=== PATIENT | male | born 1960 | race Caucasian/White ===

== ENCOUNTER 2017-04-05 07:30 | Emergency (ER) | payer BC ==
[~2017-04-05] VITALS: Ht 188 cm; Wt 72.6 kg
--- NOTE | 2017-04-05 08:10 | RAD ---
Indication: Left hand numbness. Axial imaging through the brain was performed without contrast. No prior studies are available for comparison. Ventricles and sulci are within normal limits. No sulcal effacement, midline shift or hemorrhage is detected. Cisterns are patent. The visualized paranasal sinuses are clear. Impression: No acute intracranial process is detected. PQRS Compliance Statement: One or more of the following individualized dose reduction techniques were utilized for this examination: 1. Automated exposure control 2. Adjustment of the mA and/or kV according to patient size 3. Use of iterative reconstruction technique
[2017-04-05] MEDS ORDERED: METH4TAB2 PO (08:38)
--- NOTE | 2017-04-05 08:38 | PHYS DOC ---
Past History Past Medical History: No Pertinent History Past Surgical History: Other Smoking: Cigarettes Alcohol Use: Occasionally Additional Alcohol Information: 12 beers/week Drug Use: None Adult General Chief Complaint Chief Complaint: HAND PROBLEM HPI HPI 57-year-old right-handed male patient state he woke up at 6 AM and had left hand numbness from wrist to fingers and unable to extend his hand. Patient states he did go to work and his boss recommended to come to emergency room. Patient states he usually puts his hand under his head during sleep but never had this problem before. Patient denies other focal neuro deficit, nausea, vomiting, headache, blurred vision, chest pain, shortness of breath. Patient states he smokes cigarettes and drinks alcohol daily. Review of Systems Review of Systems Constitutional: Denies fever or chills [] Eyes: Denies change in visual acuity, redness, or eye pain [] HENT: Denies nasal congestion or sore throat [] Respiratory: Denies cough or shortness of breath [] Cardiovascular: No additional information not addressed in HPI [] GI: Denies abdominal pain, nausea, vomiting, bloody stools or diarrhea [] : Denies dysuria or hematuria [] Musculoskeletal: Denies back pain or joint pain [] Integument: Denies rash or skin lesions [] Neurologic: Denies headache, focal weakness, reports numbness of hand Endocrine: Denies polyuria or polydipsia [] All other systems were reviewed and found to be within normal limits, except as documented in this note. Allergies Allergies Allergies Coded Allergies Type Severity Reaction Last Updated Verified No Known Drug Allergies 04/05/17 No Physical Exam Physical Exam Constitutional: Well developed, well nourished, mild distress, non-toxic appearance. [] HENT: Normocephalic, atraumatic, bilateral external ears normal, oropharynx moist, no oral exudates, nose normal. [] Eyes: PERRLA, EOMI, conjunctiva normal, no discharge. [] Neck: Normal range of motion, no tenderness, supple, no stridor. [] Cardiovascular:Heart rate regular rhythm, no murmur [] Lungs & Thorax: Bilateral breath sounds clear to auscultation [] Abdomen: Bowel sounds normal, soft, no tenderness, no masses, no pulsatile masses. [] Skin: Warm, dry, no erythema, no rash. [] Back: No tenderness, no CVA tenderness. [] Extremities: No tenderness, no cyanosis, no clubbing, no edema. [] Neurologic: Alert and oriented X 3, left hand without deformity, partial wrist drop with decrease of sensation of hand Psychologic: Affect normal, judgement normal, mood normal. [] Current Patient Data Vital Signs Vital Signs Date Time Temp Pulse Resp B/P (MAP) Pulse Ox O2 Delivery O2 Flow Rate FiO2 04/05/17 07:30 97.9 104 18 98 Room Air EKG EKG [] Radiology/Procedures Radiology/Procedures CT head was unremarkable] Course & Med Decision Making Course & Med Decision Making Pertinent Imaging studies reviewed. (See chart for details) Evaluation of patient in ER showed 57-year-old male patient with complaining of left hand numbness and wristdrop since woke up this morning. Patient was not a candidate for activation of code stroke because of unknown time of starting his symptom. Patient had focal weakness and numbness of radial nerve. CT head was unremarkable. Patient instructed to follow up with the neurology and Velcro wrist splint was applied by SENIOR DATABASE ADMINISTRATOR. Patient also had elevation of blood pressure of 176/96 without history of hypertension and instructed to record his blood pressure follow up with the primary care physician. Patient psychiatric to quit drinking alcohol and smoking cigarettes. Plan to give prescription of Medrol Dosepak for details of inflammation Dragon Disclaimer Dragon Disclaimer This electronic medical record was generated, in whole or in part, using a voice recognition dictation system. Departure Departure: Impression: Primary Impression: Sunday night nerve palsy Additional Impressions: Elevated systolic blood pressure reading without diagnosis of hypertension Tobacco abuse Tobacco abuse counseling Alcohol abuse Disposition: HOME, SELF-CARE (At 0836) Condition: STABLE Referrals: PCP,NO (PCP) EFRAIN GALAVIZ MD Follow-up with neurologist in one or 2 days Patient Instructions: Radial Nerve Palsy Additional Instructions: Follow-up with neurologist in one to 2 days Record your blood pressure and follow up with your primary care physician regarding elevated blood pressure Quit smoking and drinking alcohol Scripts Methylprednisolone (MEDROL) 4 Mg Tab.ds.pk 1 PKG PO UD, #1 PKG Prov: ROSI BLEVINS MD 04/05/17 Problem Qualifiers ROSI BLEVINS MD Apr 05, 2017 08:38
[2017-04-05 08:55] VITALS: BP 171/100
== END 2017-04-05 08:55 | disposition home or self-care (01) ==
LOC: ER 07:30
DX: G58.8 Other specified mononeuropathies (principal); R03.0 Elevated blood-pressure reading, without diagnosis of hypertension; F17.210 Nicotine dependence, cigarettes, uncomplicated; F10.10 Alcohol abuse, uncomplicated; Z71.6 Tobacco abuse counseling
CPT/HCPCS: 29125; 70450; 99284-25

== ENCOUNTER 2018-12-12 14:51 | Emergency (ER) | payer OTHER, BC ==
[~2018-12-12] VITALS: Ht 182.9 cm; Wt 68.0 kg
[~2018-12-12 14:51] MED LIST: METH4TAB2 PO
[2018-12-12] MEDS ORDERED: IV NORMAL SALINE 1,000ML 1,000 ML IV ONE (15:15)
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
[2018-12-12 15:47] LABS: BASO # 0.1 x10^3/uL (0.0-0.2); BASO % 1 % (0-3); EOS # 0.2 x10^3/uL (0.0-0.7); EOS % 2 % (0-3); HEMATOCRIT 46.1 % (39.0-53.0); HEMOGLOBIN 15.8 g/dL (13.0-17.5); LYMPH # 1.7 x10^3/uL (1.0-4.8); LYMPH % 21 % (24-48); MEAN CORPUSCULAR HEMOGLOBIN 35 pg (25-35); MEAN CORPUSCULAR HGB CONC 34 g/dL (31-37); MEAN CORPUSCULAR VOLUME 101 fL (79-100); MONO % 13 % (0-9); NEUT # 5.1 x10^3uL (1.8-7.7); NEUT % 63 % (31-73); PLATELET COUNT 302 x10^3/uL (140-400); RED BLOOD COUNT 4.56 x10^6/uL (4.30-5.70); RED CELL DISTRIBUTION WIDTH 13.1 % (11.5-14.5)
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
[2018-12-12 16:05] LABS: ALBUMIN/GLOBULIN RATIO 1.1 (1.0-1.7); CALCIUM 9.2 mg/dL (8.5-10.1); POTASSIUM 3.8 mmol/L (3.5-5.1); TOTAL BILIRUBIN 0.6 mg/dL (0.2-1.0); TOTAL PROTEIN 7.5 g/dL (6.4-8.2)
[2018-12-12] MEDS ORDERED: HYDR-3165 PO (16:25)
[2018-12-12 18:37] VITALS: BP 150/98
== END 2018-12-12 16:39 | disposition home or self-care (01) ==
LOC: ER 14:55
DX: S20.219A Contusion of unspecified front wall of thorax, initial encounter (principal); M54.2 Cervicalgia; M25.562 Pain in left knee; F17.210 Nicotine dependence, cigarettes, uncomplicated; V59.49XA Driver of pick-up truck or van injured in collision with other motor vehicles in traffic accident, initial encounter; Y93.I9 Activity, other involving external motion; Y92.89 Other specified places as the place of occurrence of the external cause; Y99.8 Other external cause status
CPT/HCPCS: 36415; 70450; 71250; 72125; 80053; 85025; 99285

== ENCOUNTER 2021-02-27 12:14 | Emergency (ER) | payer BC, OTHER ==
[~2021-02-27] VITALS: Ht 365.8 cm; Wt 68.6 kg
[~2021-02-27 12:14] MED LIST changes: +HYDR-3165 PO
--- NOTE | 2021-02-27 12:51 | PHYS DOC ---
Past History Additional Past Medical Histor: Borderline hypertension, no meds Past Surgical History: Other Additional Past Surgical Histo: ORIF to hand Smoking: Cigarettes Alcohol Use: Occasionally Drug Use: None Adult General Chief Complaint Chief Complaint: MULTIPLE COMPLAINTS HPI HPI Patient is a 61-year-old male presenting by way of urgent care for high blood pressure. Patient reports he initially presented to their facility for evaluation of a cough and upper respiratory symptoms that started 5 days ago. Nothing known makes better or worse. Timing of symptoms has been constant since onset. States he has had rhinorrhea, postnasal drip, dry nonproductive cough, nausea at times, extreme fatigue and occasional nonbloody diarrhea. States he presented to urgent care for evaluation and on arrival, was found to be hypertensive, approximately 200/100. 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 Otherwise has no known med ical issues, takes no medications on a daily basis. Does admit he is vaccinated against COVID-19 with [place] but is unsure if he has had any sick contact since his job requires him to travel the [facility] and he is often unsure who he is meeting with. Admits to smoking cigarettes daily, drinking alcohol most days, denies any illicit drug use. Review of Systems Review of Systems Fourteen body systems of review of systems have been reviewed. See HPI for pertinent positives and negative responses, other bryant all other systems are negative, non-pertinent or non-contributory Allergies Allergies Allergies Coded Allergies Type Severity Reaction Last Updated Verified No Known Drug Allergies 02/27/21 No Physical Exam Physical Exam General: Appears well, non toxic, and comfortable Skin: Warm, dry. Normal for ethnicity. HEENT: Atraumatic. PERRLA. Rhinorrhea and congestion. Nasal turbinates boggy b/l. Moist mucous membranes. Postnasal drip, uvula midline. Maintaining secretions. No phonation changes. Neck: Trachea midline. Normal ROM. No stridor. Respiratory: Normal WOB. CTAB w/o w/r/r. No tachypnea. Cardiovascular: Regular rate and rhythm. Normal peripheral perfusion. Abdomen: Soft. Non tender. No distension. Back: Normal ROM. Musculoskeletal: No swelling or deformity. Neuro: Alert and oriented x 4. MAEE. Lymph: No cervical LAD. Psych: Normal affect and mood. Current Patient Data Vital Signs Vital Signs Date Time Temp Pulse Resp B/P (MAP) Pulse Ox O2 Delivery O2 Flow Rate FiO2 02/27/21 12:25 99.1 108 24 146/90 (108) 98 Room Air Lab Results Laboratory Tests Test 02/27/21 13:05 White Blood Count 5.8 x10^3/uL Red Blood Count 4.46 x10^6/uL Hemoglobin 15.5 g/dL Hematocrit 45.1 % Mean Corpuscular Volume 101 fL Mean Corpuscular Hemoglobin 35 pg Mean Corpuscular Hemoglobin Concent 34 g/dL Red Cell Distribution Width 13.3 % Platelet Count 254 x10^3/uL Neutrophils (%) (Auto) 50 % Lymphocytes (%) (Auto) 21 % Monocytes (%) (Auto) 25 % Eosinophils (%) (Auto) 2 % Basophils (%) (Auto) 1 % Neutrophils # (Auto) 2.9 x10^3uL Lymphocytes # (Auto) 1.2 x10^3/uL Monocytes # (Auto) 1.5 x10^3/uL Eosinophils # (Auto) 0.1 x10^3/uL Basophils # (Auto) 0.1 x10^3/uL Sodium Level 138 mmol/L Potassium Level 4.0 mmol/L Chloride Level 101 mmol/L Carbon Dioxide Level 28 mmol/L Anion Gap 9 Blood Urea Nitrogen 7 mg/dL Creatinine 0.9 mg/dL Estimated GFR (Cockcroft-Gault) 86.1 BUN/Creatinine Ratio 8 Glucose Level 151 mg/dL Calcium Level 8.8 mg/dL Total Bilirubin 0.2 mg/dL Aspartate Amino Transf (AST/SGOT) 27 U/L Alanine Aminotransferase (ALT/SGPT) 26 U/L Alkaline Phosphatase 75 U/L Total Protein 6.7 g/dL Albumin 3.6 g/dL Albumin/Globulin Ratio 1.2 SARS-CoV-2 Antigen (Rapid) Negative EKG EKG EKG ordered and interpreted by myself at 1305 hrs. as sinus tachycardia at 101 bpm, unremarkable intervals, no axis deviation, no obvious ischemic findings, no STEMI Radiology/Procedures Radiology/Procedures EXAM: CHEST 1 VIEW History: Cough COMPARISON: None available. TECHNIQUE: Single portable radiograph of the chest FINDINGS: The cardiac silhouette is unremarkable. The lungs are clear bilaterally. The costophrenic sulci are clear and well demarcated. IMPRESSION: No radiographic evidence of an acute cardiopulmonary process. Electronically signed by: Shyam Geller MD (02/27/2021 1:30 PM) [id number] Heart Score C/O Chest Pain: No HEART Score for Chest Pain: HEART Score for Chest Pain Response (Comments) Value History Slighlty/Non-Suspicious 0 ECG Normal 0 Age >45 - < 65 1 Risk Factors 1 or 2 Risk Factors 1 Troponin < Normal Limit 0 Total 2 Risk Factors: Risk Factors: DM, Current or recent (<one month) smoker, HTN, HLP, family history of CAD, obesity. Risk Scores: Risk Factors: DM, Current or recent (<one month) smoker, HTN, HLP, family history of CAD, obesity. Course & Med Decision Making Course & Med Decision Making ABCs unremarkable HPI physical exam and comprehensive ER work-up nonconcerning for any emergent or surgical issues Patient suffering from URI, rapid Covid negative but pending PCR Covid Reported elevated blood pressure from urgent care unremarkable after serial assessment while in ER setting. No indication for further diagnostic work-up or need of hospitalization at present. Continued supportive care and close PCP follow-up advised. Strict return precautions discussed with patient and at bedside with good understanding verbalized, all questions and concerns addressed prior to ER departure Dragon Disclaimer Dragon Disclaimer This electronic medical record was generated, in whole or in part, using a voice recognition dictation system. Departure Departure: Impression: Primary Impression: Viral syndrome Additional Impression: Person under investigation for COVID-19 Disposition: 01 HOME / SELF CARE / HOMELESS Condition: STABLE Referrals: SHREE GLYNN (PCP) Patient Instructions: Viral Syndrome Additional Instructions: You were seen for cough, runny nose, fatigue and possible infection with COVID- 19. Your physical exam was reassuring. Your chest x-ray was normal. We tested you for COVID-19 but this test does not come back for ~24 hours. In the meantime you need to quarantine yourself at home away from all other individuals, especially those who are elderly or have any other chronic health issues or an immunocompromised status. You should return to the ED if you develop worsening cough, shortness of breath, chest pain, or any other new or concerning symptoms. Alternate Tylenol and ibuprofen as needed for body aches and pain. If your test does come back positive you need to quarantine yourself for 10 days until symptom-free. You should make sure to drink plenty of fluids and get plenty of rest. In addition, as disclosed your blood pressure was high today which could have been due to numerous reasons. Please keep a blood pressure log at home taking measurements of your blood pressure at least 1-3 times daily for your primary care physician to review. Problem Qualifiers RC FERNANDEZ DO Feb 27, 2021 12:51
--- NOTE | 2021-02-27 13:15 | EKG ---
[address] [address] Test Date: 2021-02-27 Test Time: 12:57:19 Pat Name: JASMIN OLIVER Department: Room: Gender: M Management Rep: : [id number] Requested By: RC FERNANDEZ Order Number: [id number] Reading MD: Slava Hair MD Measurements Intervals [place] Rate: 101 P: 62 FL: 112 QRS: 75 QRSD: 86 T: 57 QT: 336 QTc: 442 Interpretive Statements SINUS TACHYCARDIA Electronically Signed On 02-27-2021 13:36:17 [employer] ANALYST by Slava Hair MD
[2021-02-27 13:29] LABS: BASO # 0.1 x10^3/uL (0.0-0.2); BASO % 1 % (0-3); EOS # 0.1 x10^3/uL (0.0-0.7); EOS % 2 % (0-3); HEMATOCRIT 45.1 % (39.0-53.0); HEMOGLOBIN 15.5 g/dL (13.0-17.5); LYMPH # 1.2 x10^3/uL (1.0-4.8); LYMPH % 21 % (24-48); MEAN CORPUSCULAR HEMOGLOBIN 35 pg (25-35); MEAN CORPUSCULAR HGB CONC 34 g/dL (31-37); MEAN CORPUSCULAR VOLUME 101 fL (79-100); MONO # 1.5 x10^3/uL (0.0-1.1); MONO % 25 % (0-9); NEUT # 2.9 x10^3uL (1.8-7.7); NEUT % 50 % (31-73); PLATELET COUNT 254 x10^3/uL (140-400); RED BLOOD COUNT 4.46 x10^6/uL (4.30-5.70); RED CELL DISTRIBUTION WIDTH 13.3 % (11.5-14.5); WHITE BLOOD COUNT 5.8 x10^3/uL (4.0-11.0)
--- NOTE | 2021-02-27 13:33 | RAD ---
EXAM: CHEST 1 VIEW History: Cough COMPARISON: None available. TECHNIQUE: Single portable radiograph of the chest FINDINGS: The cardiac silhouette is unremarkable. The lungs are clear bilaterally. The costophrenic sulci are clear and well demarcated. IMPRESSION: No radiographic evidence of an acute cardiopulmonary process. Electronically signed by: Shyam Geller MD (02/27/2021 1:30 PM) [id number]
[2021-02-27 13:38] LABS: CALCIUM 8.8 mg/dL (8.5-10.1); CREATININE 0.9 mg/dL (0.7-1.3); GFR 86.1
[2021-02-27 13:44] LABS: ALBUMIN 3.6 g/dL (3.4-5.0); ALBUMIN/GLOBULIN RATIO 1.2 (1.0-1.7); TOTAL BILIRUBIN 0.2 mg/dL (0.2-1.0); TOTAL PROTEIN 6.7 g/dL (6.4-8.2)
[2021-02-27 13:50] VITALS: BP 164/101
== END 2021-02-27 14:10 | disposition home or self-care (01) ==
LOC: ER 12:14
DX: B34.9 Viral infection, unspecified (principal); I10 Essential (primary) hypertension; F17.210 Nicotine dependence, cigarettes, uncomplicated; Z20.822 Contact with and (suspected) exposure to COVID-19
CPT/HCPCS: 71045; 80053; 85025; 87426; 93005; 99285; C9803; U0003